=== PATIENT | male | born 1980 | race Caucasian/White ===

== ENCOUNTER 2018-09-18 16:05 | Emergency (ER) | payer OTHER, BC ==
[2018-09-18 16:14] VITALS: BP 124/72; PULSE 80; TEMP 97.8; BMI 34.9
--- NOTE | 2018-09-18 16:31 | PDOC ---
History of Present Illness - General Chief Complaint: Injury Stated Complaint: FOOT INJURY Time Seen by Provider: 09/18/18 16:18 History Source: Patient - History of Present Illness Occurred: reports: this morning Lower Extremity Pain Location: left: 1st toe Method of Injury: Yes: direct blow Past History - Past Medical History Allergies/Adverse Reactions: Allergies Allergy/AdvReac Type Severity Reaction Status Date / Time No Known Allergies Allergy Verified 09/18/18 16:14 Home Medications: Ambulatory Orders NK [No Known Home Medication] 09/26/14 - Suicide/Smoking/Psychosocial Hx Smoking History: Unknown if ever smoked Number of Cigarettes Smoked Daily: 5 'Breaking Loose' booklet given: 07/15/16 Hx Alcohol Use: No Drug/Substance Use Hx: No Substance Use Type: None Review of Systems - Review of Systems Musculoskeletal: Yes: Joint Pain. No: Joint Swelling *Physical Exam - Vital Signs Last Vital Signs Temp Pulse Resp BP Pulse Ox 97.8 F 80 18 124/72 97 09/18/18 16:12 09/18/18 16:12 09/18/18 16:12 09/18/18 16:12 09/18/18 16:12 - Physical Exam General Appearance: Yes: Appropriately Dressed. No: Apparent Distress HEENT: positive: Normal Voice Neck: positive: Supple Respiratory/Chest: negative: Respiratory Distress Extremity: positive: Normal Inspection, Tender. negative: Swelling Integumentary: positive: Dry, Warm Neurologic: positive: Fully Oriented, Alert, Normal Mood/Affect (to distal L great toe) ED Treatment Course - RADIOLOGY Radiology Studies Ordered: Category Date Time Status FOOT-LEFT [RAD] Stat Radiology 09/18/18 16:19 Taken Medical Decision Making - Medical Decision Making 09/18/18 16:28 38 yo M, here w/ L great toe pain afterladder fell onto L foot this am at work. Limping in ED see exam Great toe contusion XR neg for fx -dc to take OTC meds as needed for pain *DC/Admit/Observation/Transfer Diagnosis at time of Disposition: Toe contusion Qualifiers: Encounter type: initial encounter Toe: great toe Damage to nail status: without damage Laterality: left Qualified Code(s): S90.112A - Contusion of left great toe without damage to nail, initial encounter - Discharge Dispostion Disposition: HOME Condition at time of disposition: Good - Referrals - Patient Instructions Printed Discharge Instructions: DI for Toe Sprain - Post Discharge Activity
== END 2018-09-18 16:37 | disposition home or self-care (01) ==
LOC: JERFT 16:05
DX: S90.112A Contusion of left great toe without damage to nail, initial encounter (principal); W20.8XXA Other cause of strike by thrown, projected or falling object, initial encounter; Y93.89 Activity, other specified; Y92.218 Other school as the place of occurrence of the external cause; Y99.0 Civilian activity done for income or pay
CPT/HCPCS: 73630-TC-LT; 99281-25

== ENCOUNTER 2018-12-22 09:44 | Emergency (ER) | payer BC, OTHER ==
[2018-12-22 10:14] VITALS: BP 129/78; PULSE 102; TEMP 100.3; BMI 34.0
[2018-12-22] MEDS ORDERED: ACETAMINOPHEN 500 MG TABLET (FP) PO ONE (11:03)
[2018-12-22] MEDS ORDERED: ACETAMINOPHEN 500 MG TABLET (FP) ONE (11:04)
--- NOTE | 2018-12-22 11:29 | PDOC ---
History of Present Illness - General Chief Complaint: Respiratory Stated Complaint: WEAKNESS Time Seen by Provider: 12/22/18 10:57 History Source: Patient Exam Limitations: Clinical Condition - History of Present Illness Initial Comments: 12/22/18 11:23 Patient with no significant medical history present with complaining of 2 day history of nasal congestion, runny nose, body aches, fever and intermittent dry cough. Patient denies sore throat, nausea or vomiting. Patient denies abdominal pain or diarrhea. Denies any other symptoms Timing/Duration: other (2 days) Past History - Past Medical History Allergies/Adverse Reactions: Allergies Allergy/AdvReac Type Severity Reaction Status Date / Time No Known Allergies Allergy Verified 12/22/18 10:11 Home Medications: Ambulatory Orders Ipratropium Logan 2 spray NS BID PRN #1 spray 12/22/18 Methylprednisolone [Medrol Dose Leandro] 4 mg PO ASDIR #21 tablet 12/22/18 Oseltamivir Phosphate [Tamiflu] 75 mg PO BID 5 Days #10 capsule 12/22/18 COPD: No - Immunization History Immunization Up to Date: Yes - Suicide/Smoking/Psychosocial Hx Smoking History: Current every day smoker Number of Cigarettes Smoked Daily: 5 Information on smoking cessation initiated: No 'Breaking Loose' booklet given: 07/15/16 Hx Alcohol Use: Yes Drug/Substance Use Hx: No Substance Use Type: None Review of Systems - Review of Systems Able to Perform ROS?: Yes Is the patient limited Wolof proficient: No Constitutional: Yes: See HPI, Chills, Fever, Malaise HEENTM: Yes: Symptoms Reported, See HPI, Nose Congestion. No: Eye Pain, Blurred Vision, Tearing, Recent change in vision, Double Vision, Cataracts, Ear Pain, Ocular Prothesis, Ear Discharge, Nose Pain, Tinnitus, Nose Bleeding, Hearing Loss, Throat Pain, Throat Swelling, Mouth Pain, Dental Problems, Difficulty Swallowing, Mouth Swelling, Other Respiratory: Yes: Symptoms reported, See HPI, Cough (intermittent). No: Orthopnea, Shortness of Breath, SOB with Exertion, SOB at Rest, Stridor, Wheezing, Productive cough, Hemoptysis, Other Cardiac (ROS): No: Symptoms Reported, See HPI, Chest Pain, Edema, Irregular Heart Rate, Lightheadedness, Palpitations, Syncope, Chest Tightness, Other ABD/GI: No: Constipated, Diarrhea, Nausea, Vomiting, Abdominal cramping Neurological: No: Headache All Other Systems: Reviewed and Negative *Physical Exam - Vital Signs Last Vital Signs Temp Pulse Resp BP Pulse Ox 100.3 F H 102 H 18 129/78 97 12/22/18 10:11 12/22/18 10:11 12/22/18 10:11 12/22/18 10:11 12/22/18 10:11 - Physical Exam Comments: 12/22/18 11:26 GENERAL: Well developed, well nourished. Awake and alert. No acute distress. HEENT: Normocephalic, atraumatic. PERRLA, EOMI. No conjunctival pallor. Sclera are non-icteric. Moist mucous membranes. Oropharynx is clear. NECK: Supple. Full ROM. CARDIOVASCULAR: Regular rate and rhythm. No murmurs, rubs, or gallops. Distal pulses are 2+ and symmetric. PULMONARY: No evidence of respiratory distress. Lungs clear to auscultation bilaterally. No wheezing, rales or rhonchi. ABDOMINAL: Soft. Non-tender. Non-distended. No rebound or guarding. No organomegaly. Normoactive bowel sounds. MUSCULOSKELETAL Normal range of motion at all joints. EXTREMITIES: No cyanosis. No edema. SKIN: Warm and dry. Normal capillary refill. No rashes. No jaundice. NEUROLOGICAL: Alert, awake, appropriate. Gait is normal without ataxia. PSYCHIATRIC: Cooperative. Good eye contact. Appropriate mood General Appearance: Yes: Nourished, Appropriately Dressed. No: Apparent Distress Moderate Sedation - Procedure Monitoring Vital Signs: Procedure Monitoring Vital Signs Temperature 100.3 F H 12/22/18 10:11 Pulse Rate 102 H 12/22/18 10:11 Respiratory Rate 18 12/22/18 10:11 Blood Pressure 129/78 12/22/18 10:11 O2 Sat by Pulse Oximetry (%) 97 12/22/18 10:11 ED Treatment Course - Medications Given in the ED: ED Medications Discontinued Medications Generic Name Dose Route Start Last Admin Trade Name Freq PRN Reason Stop Dose Admin Acetaminophen 1,000 mg 12/22/18 11:03 12/22/18 11:07 Tylenol - PO 12/22/18 11:04 1,000 mg ONCE ONE Administration Medical Decision Making - Medical Decision Making 12/22/18 11:27 Patient with no significant medical history present with complaining of 2 day history of nasal congestion, runny nose, body aches, fever and intermittent dry cough. Clinical exam are unremarkable except fever of 100.2F. Lungs clear to auscultation bilaterally. Rapid strep and rapid flu tests ordered. Tylenol 1 g orally for fever. Treat based on lab results 12/22/18 11:58 Rapid flu positive for influenza A. patient is stable for patient treatment for influenza on Medrol Leandro and Tamiflu with Atrovent nasal spray *DC/Admit/Observation/Transfer Diagnosis at time of Disposition: Influenza A, URI due to influenza Fever Qualifiers: Fever type: unspecified Qualified Code(s): R50.9 - Fever, unspecified - Discharge Dispostion Disposition: HOME Condition at time of disposition: Stable Decision to Admit order: No - Prescriptions Prescriptions: Ipratropium Logan 2 spray NS BID PRN #1 spray PRN Reason: nasal congestion Methylprednisolone [Medrol Dose Leandro] 4 mg PO ASDIR #21 tablet Oseltamivir Phosphate [Tamiflu] 75 mg PO BID 5 Days #10 capsule - Referrals - Patient Instructions Printed Discharge Instructions: Influenza Additional Instructions: Strep test is negative. Flu test was positive for influenza a. Take medication as prescribed. Increase fluid intake. Take Tylenol as needed for fever. - Post Discharge Activity
== END 2018-12-22 12:05 | disposition home or self-care (01) ==
LOC: JERFT 09:44
DX: J09.X2 Influenza due to identified novel influenza A virus with other respiratory manifestations (principal)
CPT/HCPCS: 87070; 87804; 87880; 99281-25

== ENCOUNTER 2021-10-10 06:53 | Emergency (ER) | payer BC ==
[2021-10-10 07:07] VITALS: BMI 34.0
[2021-10-10] MEDS ORDERED: SODIUM CHLORIDE 0.9% 1000 ML INFUS.BAG IV ONE (07:39)
[2021-10-10] MEDS ORDERED: ACETAMINOPHEN 1000 MG/100 ML VIAL IVPB ONE (07:44)
[2021-10-10] MEDS ORDERED: DIPHTH,PERTUSS(ACELL),TET 0.5 ML DISP.SYRIN IM ONE ×2 (07:45→08:32)
[2021-10-10 08:13] LABS: BASO % 0.9 % (0-2.0); EOS % 0.3 % (0-4.5); HEMATOCRIT 43.9 % (35.4-49); HEMOGLOBIN 15.3 GM/dL (11.7-16.9); LYMPH % 7.7 % (8-40); MCH 31.5 pg (25.7-33.7); MCHC 34.9 g/dl (32.0-35.9); MEAN CELL VOLUME 90.3 fl (80-96); MEAN PLT VOLUME 7.4 fl (7.5-11.1); MONO % 9.8 % (3.8-10.2); NEUT % 81.3 % (42.8-82.8); PLATELET COUNT 170 10^3/uL (134-434); RBC 4.86 M/mm3 (4.00-5.60); RDW 13.2 % (11.9-15.9)
[2021-10-10] MEDS ORDERED: ACETAMINOPHEN INJECTION 100 ML IVPB ONE (08:31)
[2021-10-10 09:03] LABS: ALBUMIN 3.4 g/dl (3.4-5.0); ALK PHOS 56 U/L (45-117); ANION GAP 7 MMOL/L (8-16); BILIRUBIN,TOTAL 0.7 mg/dL (0.2-1); BLOOD UREA NITROGEN 17.2 mg/dL (7-18); CALCIUM 8.3 mg/dL (8.5-10.1); CHLORIDE 110 mmol/L (98-107); CO2 23 mmol/L (21-32); CREATININE 1.4 mg/dL (0.55-1.3); GLUCOSE,RANDOM 115 mg/dL (74-106); SGOT/AST 21 U/L (15-37); SGPT/ALT 34 U/L (13-61); SODIUM 139 mmol/L (136-145); TOT PROT 6.2 g/dl (6.4-8.2)
[2021-10-10 10:14] VITALS: BP 112/64; PULSE 64; TEMP 98
== END 2021-10-10 10:19 | disposition home or self-care (01) ==
LOC: JER 06:53
PROC: 3E0234Z Introduction of Serum, Toxoid and Vaccine into Muscle, Percutaneous Approach (ICD-10-PCS; principal; 2021-10-10)
PROC: 3E033GC Introduction of Other Therapeutic Substance into Peripheral Vein, Percutaneous Approach (ICD-10-PCS; principal; 2021-10-10)
DX: R55 Syncope and collapse (principal); S02.2XXA Fracture of nasal bones, initial encounter for closed fracture; T14.8XXA Other injury of unspecified body region, initial encounter; W10.8XXA Fall (on) (from) other stairs and steps, initial encounter
CPT/HCPCS: 36415; 70450-TC; 73630-TC-LT; 80053; 82550; 82553; 84484; 85025; 87804; 90715; 93005; 93010; 99285-25; C9803; J0131; U0003; U0005

== ENCOUNTER 2023-09-07 15:47 | Emergency (ER) | payer OTHER, BC ==
[2023-09-07 16:06] VITALS: BP 111/77; PULSE 65; RESP 18; TEMP 98.2; BMI 34.0
== END 2023-09-07 18:19 | disposition home or self-care (01) ==
LOC: JER 15:47 → JERFT 15:47
DX: M25.571 Pain in right ankle and joints of right foot (principal); S93.401A Sprain of unspecified ligament of right ankle, initial encounter; W28.XXXA Contact with powered lawn mower, initial encounter
CPT/HCPCS: 73610-TC-RT-FY; 73630-TC-RT-FY; 99283-25

== ENCOUNTER 2024-06-07 06:11 | Emergency (ER) | payer BC, OTHER ==
[2024-06-07 06:23] VITALS: TEMP 98.9; BMI 32.8
[2024-06-07 08:02] LABS: HEMATOCRIT 41.9 % (35.4-49); HEMOGLOBIN 14.7 GM/dL (11.7-16.9); MCH 31.3 pg (25.7-33.7); MCHC 35.2 g/dl (32.0-35.9); MEAN CELL VOLUME 88.9 fl (80-96); MEAN PLT VOLUME 7.3 fl (7.5-11.1); PLATELET COUNT 163 10^3/uL (134-434); RBC 4.71 M/mm3 (4.00-5.60); RDW 13.2 % (11.9-15.9); WHITE BLOOD COUNT 6.1 K/mm3 (4.0-10.0)
[2024-06-07] MEDS: SODIUM CHLORIDE 0.9% 500 ML INFUS.BAG IV ONE (08:02)
[2024-06-07 08:20] LABS: POTASSIUM 4.1 mmol/L (3.5-5.1)
[2024-06-07 08:22] LABS: CALCIUM 8.1 mg/dL (8.5-10.1)
[2024-06-07 08:23] LABS: ALBUMIN 3.2 g/dl (3.4-5.0); BLOOD UREA NITROGEN 11.5 mg/dL (7-18)
[2024-06-07 08:26] LABS: CREATININE 1.2 mg/dL (0.55-1.3)
[2024-06-07 08:27] LABS: TOT PROT 6.1 g/dl (6.4-8.2)
[2024-06-07 08:28] LABS: BILIRUBIN,TOTAL 0.7 mg/dL (0.2-1)
[2024-06-07 09:02] VITALS: BP 111/65; PULSE 73; RESP 17
[2024-06-07 10:34] LABS: PLATELET ESTIMATE ADEQUATE
== END 2024-06-07 09:56 | disposition home or self-care (01) ==
LOC: JER 06:11
DX: S10.91XA Abrasion of unspecified part of neck, initial encounter (principal); U07.1 COVID-19; R42 Dizziness and giddiness; W19.XXXA Unspecified fall, initial encounter
CPT/HCPCS: 0241U-QW; 36415; 70450-TC; 71046-TC-FY; 72125-TC; 80053; 83735; 85025; 93005; 93010; 99285-25